=== PATIENT | female | born 1965 | race Caucasian/White ===

== ENCOUNTER → 2020-12-08 | Outpatient (CLI) | payer OTHER ==
[~2020-12-08] MED LIST: ALBU8.5H8 INH; BACL20TA PO; BIOT25005 PO; CALC600T60 PO; CETI10TA76 PO; CRAN425C3 PO; FLUT1DIS5 IH; FLUTICASON PO; GABA600T7 PO; MONT10TA6 PO; MULT-717 PO; NAPR-685 PO
[2020-12-08 15:35] LABS: MICROSCOPIC AUTO
[2020-12-08 15:41] LABS: ANION GAP 7 mmol/L (5-15); CALCIUM 8.9 mg/dL (8.5-10.1); CHLORIDE 107 mmol/L (98-107); CREATININE 0.79 mg/dL (0.55-1.02)
[2020-12-08 15:42] LABS: BASOPHILS % (AUTO) 1 % (0-1); EOSINOPHILS % (AUTO) 3 % (1-7); LYMPHOCYTES % (AUTO) 25 % (22-44); MEAN CORPUSCULAR HEMOGLOBIN 30.5 pg (27.0-34.8); MEAN CORPUSCULAR HGB CONC 33.5 g/dL (32.4-35.8); MEAN PLATELET VOLUME 8.1 fL (7.4-10.4); MONOCYTES % (AUTO) 10 % (2-9); NEUTROPHILS % (AUTO) 61 % (42-75); PLATELET COUNT 232 x10^3/uL (130-400); RED BLOOD COUNT 4.45 x10^6/uL (3.82-5.3); RED CELL DISTRIBUTION WIDTH 13.3 % (9.6-15.2)
[2020-12-08 15:44] LABS: INTERNATIONAL NORMALIZED RATIO 0.93 (0.93-1.1); PROTHROMBIN TIME 9.8 Seconds (9.6-11.5)
== END | disposition home or self-care (01) ==
LOC: STAR 08:00
PROVIDERS: ATTEND Neurological Surgery
DX: Z01.811 Encounter for preprocedural respiratory examination (principal); Z01.810 Encounter for preprocedural cardiovascular examination; Z01.812 Encounter for preprocedural laboratory examination; Z01.818 Encounter for other preprocedural examination; M47.892 Other spondylosis, cervical region; M48.02 Spinal stenosis, cervical region; M54.12 Radiculopathy, cervical region; R79.1 Abnormal coagulation profile; R82.90 Unspecified abnormal findings in urine; R94.31 Abnormal electrocardiogram [ECG] [EKG]
CPT/HCPCS: 36415; 71046; 80048; 81001; 85025; 85610; 85730; 87077; 87086; 87147